=== PATIENT | male | born 1950 | race Caucasian/White ===

== ENCOUNTER 2019-11-12 12:56 | Outpatient (CLI) | payer OTHER | END 2019-11-12 14:06 | disposition home or self-care (01) | LOC: NUCLEAR 12:56 | DX: C73 Malignant neoplasm of thyroid gland (principal) | CPT/HCPCS: 79005; A9517 ==

== ENCOUNTER 2019-11-16 10:10 | Outpatient (CLI) | payer OTHER | END 2019-11-16 10:22 | disposition home or self-care (01) | LOC: NUCLEAR 10:10 | DX: C73 Malignant neoplasm of thyroid gland (principal); E89.0 Postprocedural hypothyroidism ==